=== PATIENT | female | born 1990 | race Caucasian/White ===

== ENCOUNTER → 2020-11-06 13:32 | Outpatient (BNVA) | payer MEDICAID, SELFPAY | PROVIDERS: Family Provider Physician Assistant; Visit Provider Psychiatry & Neurology Psychiatry | DX: F33.2 Major depressive disorder, recurrent severe without psychotic features (principal); F41.1 Generalized anxiety disorder; F43.12 Post-traumatic stress disorder, chronic; F12.20 Cannabis dependence, uncomplicated; F15.20 Other stimulant dependence, uncomplicated; F11.21 Opioid dependence, in remission; F17.210 Nicotine dependence, cigarettes, uncomplicated; S06.9X9A Unspecified intracranial injury with loss of consciousness of unspecified duration, initial encounter | CPT/HCPCS: 99204 ==

== ENCOUNTER → 2020-12-09 13:53 | Outpatient (BNVA) | payer MEDICAID, SELFPAY | PROVIDERS: Family Provider Physician Assistant; Visit Provider Psychiatry & Neurology Psychiatry | DX: F43.12 Post-traumatic stress disorder, chronic (principal); F17.210 Nicotine dependence, cigarettes, uncomplicated; F11.21 Opioid dependence, in remission; F15.20 Other stimulant dependence, uncomplicated; F12.20 Cannabis dependence, uncomplicated; F41.1 Generalized anxiety disorder; F33.2 Major depressive disorder, recurrent severe without psychotic features | CPT/HCPCS: 99214 ==

== ENCOUNTER 2020-12-12 09:25 | Emergency (ER) | payer MEDICAID, SELFPAY ==
[2020-12-12 09:36] VITALS: BP 144/86; PULSE 81; RESP 15; TEMP 36.5; O2SAT 96; BMI 23.5
--- NOTE | 2020-12-12 10:13 | W.ED.MEDCLER ---
HPI - Medical Clearance General Chief complaint: Medical Clearance Stated complaint: without abilify, awaiting script refill Time Seen by Provider: 12/12/20 09:41 Source: patient Mode of arrival: ambulatory Limitations: no limitations History of Present Illness HPI Narrative: 30-year-old female presents to the ER today for a medication refill. Patient has been off of her Abilify x3 days. She has contacted the pharmacy who was trying to get a hold of her doctor Dr. Richter at [facility]. Patient reports when she runs out of her medication she starts having hallucinations and extreme anxiety. She reports she is to this point at this time and needs a refill before the weekend. Patient is unsure of her dose and reports she was taking 1-1/2 tabs however thinks the doctor was upping that to 2 tabs. Patient denies SI\HI at this time. Onset (ago): day(s) (3) Related Information Previous Rx's Medication Instructions Recorded trazodone 100 mg tablet 200 mg PO .HS PRN #60 tab 11/06/20 bupropion HCl 300 mg 24 hr tablet, 300 mg PO QAM #30 tab 12/09/20 extended release citalopram 40 mg tablet 40 mg PO DAILY #30 tab 12/09/20 hydroxyzine pamoate 50 mg capsule 50 mg PO TID PRN #90 cap 12/09/20 aripiprazole 10 mg tablet 10 mg PO DAILY #30 tab 12/11/20 Allergies Allergy/AdvReac Type Severity Reaction Status Date / Time No Known Allergies Allergy Verified 12/09/20 14:00 Course Consultations Consultation #1: I contacted Dr. Richter's office to get clarification on medication dose and also if a refill is at the pharmacy. Was told by that office that patient prescription is at [facility] pharmacy and ready for pickup. Time: 10:19 Vital Signs Temperature 97.7 F 12/12/20 09:36 Pulse Rate 81 12/12/20 09:36 Respiratory Rate 15 12/12/20 09:36 Blood Pressure 144/86 12/12/20 09:36 Pulse Oximetry 96 12/12/20 09:36 MDM - Medical Clearance MDM Narrative Medical decision making narrative: Patient presents to the ER needing a refill on her Abilify. I have contacted her behavioral health doctor Dr. Richter to find out the status of her prescription and the correct dosage. We will get her a dose in the ER today. Patient's physician said the dose is waiting for her at the pharmacy and will be 10 mg daily. Critical Care Time Critical Care Time Critical Care Time: No Discharge Plan Discharge Patient Disposition: Home Clinical Impression: Major depression, chronic Condition: Stable Prescriptions: No Action trazodone 100 mg tablet 200 mg PO .HS PRN (Reason: insomnia) Qty: 60 RF: 2 bupropion HCl [Wellbutrin XL] 300 mg tablet extended release 24 hr 300 mg PO QAM Qty: 30 RF: 2 citalopram [Celexa] 40 mg tablet 40 mg PO DAILY Qty: 30 RF: 2 hydroxyzine pamoate 50 mg capsule 50 mg PO TID PRN (Reason: anxiety) Qty: 90 RF: 2 aripiprazole [Abilify] 10 mg tablet 10 mg PO DAILY Qty: 30 RF: 2 Discharge Orders: Discharge ED (Routine); Ordered 12/12/20 Ordered By: Graciela Gilbert Discharge Diet: Usual diet Discharge Activity: Resume usual activity Patient Instructions: Opioid Safety Activity Restrictions/Additional Instructions: Continue home medications at this time. A prescription for a 10 mg Abilify tab is at the pharmacy per patient's doctor. Follow-up with behavioral health as scheduled. Return to the ER with any new or worsening symptoms.
[2020-12-12] MEDS: ARIPiprazole 10 mg Tablet PO (10:40)
[2020-12-12 10:45] VITALS: BP 101/61; PULSE 83; RESP 14; O2SAT 98
== END 2020-12-12 09:46 | disposition home or self-care (01) ==
PROVIDERS: Emergency Provider Physician Assistant
DX: F32.9 Major depressive disorder, single episode, unspecified (principal)
CPT/HCPCS: 99282

== ENCOUNTER → 2021-01-06 12:46 | Outpatient (BNVA) | payer OTHER, SELFPAY | PROVIDERS: Visit Provider Psychiatry & Neurology Psychiatry | DX: F43.12 Post-traumatic stress disorder, chronic (principal); F17.210 Nicotine dependence, cigarettes, uncomplicated; F11.21 Opioid dependence, in remission; F15.20 Other stimulant dependence, uncomplicated; F12.20 Cannabis dependence, uncomplicated; F41.1 Generalized anxiety disorder; F33.2 Major depressive disorder, recurrent severe without psychotic features | CPT/HCPCS: 99214 ==

== ENCOUNTER → 2021-02-10 09:47 | Outpatient (BNVA) | payer OTHER, SELFPAY | PROVIDERS: Visit Provider Psychiatry & Neurology Psychiatry | DX: F43.12 Post-traumatic stress disorder, chronic (principal); F41.1 Generalized anxiety disorder; F33.2 Major depressive disorder, recurrent severe without psychotic features; F17.210 Nicotine dependence, cigarettes, uncomplicated; F11.21 Opioid dependence, in remission; F15.20 Other stimulant dependence, uncomplicated; F12.20 Cannabis dependence, uncomplicated | CPT/HCPCS: 99214 ==

== ENCOUNTER 2024-04-13 16:49 | Emergency (ER) | payer MEDICAID, SELFPAY ==
[2024-04-13 16:58] VITALS: BP 110/77; PULSE 78; RESP 16; TEMP 36.5; O2SAT 98; BMI 22.6
--- NOTE | 2024-04-13 17:09 | ED_ITS ---
Documented by User: Omar Durant DO 04/14/24 10:43 HPI - Abdominal Pain 2 General: Chief Complaint: Abdominal Pain Stated Complaint: lower abdominal pain Time Seen by Provider: 04/13/24 17:06 History of Present Illness: 33-year-old female presents emergency ro om with lower abdominal pain. This been intermittent for the last several months she has been seen by her PCP for it that they had thought she had kidney stones but never actually did a CT or collected a stone. She has had a couple of ultrasounds those were negative. She has frequent vomiting and diarrhea at times she describes what sounds like acholic stools. She has not any hematochezia melena hematemesis or coffee- ground emesis. She has not noticed anything that exacerbates or relieves it. Associated Symptoms: Reports nausea; Denies chills, dysuria and fever(s) Related Data Previous Rx's Medication Instructions Recorded aripiprazole 10 mg tablet (Abilify) 10 mg PO DAILY #30 tabs 02/10/21 bupropion HCl 300 mg 24 hr tablet, 300 mg PO QAM #30 tabs 02/10/21 extended release (Wellbutrin XL) citalopram 40 mg tablet (Celexa) 40 mg PO DAILY #30 tabs 02/10/21 hydroxyzine pamoate 50 mg capsule 50 mg PO TID PRN anxiety #90 caps 02/10/21 trazodone 100 mg tablet 200 mg (2 x 100 mg) PO .HS PRN 02/10/21 insomnia #60 tabs dicyclomine 20 mg tablet 20 mg PO QID PRN abdominal pain 04/13/24 #20 tabs Allergies Allergy/AdvReac Type Severity Reaction Status Date / Time No Known Allergies Allergy Verified 02/10/21 09:56 Review of Systems 2 Const: Denies: fever(s) or chills Card: Denies: chest pain Resp: Denies: dyspnea GI: Reports: abdominal pain and nausea : Denies: dysuria, urinary frequency or urinary urgency Musc: Denies: neck pain or back pain Skin/Breast: Denies: rash PFSH ED 2 PFSH: Medical History (Updated 04/13/24 @ 19:12 by Tra Lewis MD) Traumatic brain injury Cannabis use disorder, severe, dependence Social History (Reviewed 01/10/25 @ 17:10 by BRAULIO Chang Smoking and tobacco/nicotine status: current every day tobacco/nicotine user cigarettes Packs smoked per day: 1 Years cigarettes smoked: 16 Quit status (tobacco/nicotine): has tried quititng Number of times tried to quit tobacco: 4 Second hand smoke exposure: Yes Physical Exam 2 Const: GENERAL APPEARANCE: cooperative ORIENTATION/CONSCIOUSNESS: Yes awake, Yes oriented to person, Yes oriented to place and Yes oriented to time HENMT: COMMON NORMALS: normocephalic, atraumatic and hearing grossly normal bilaterally HEAD & SCALP: normocephalic and atraumatic Resp: COMMON NORMALS: normal respiratory effort, No retractions, No use of accessory muscles and clear to auscultation bilaterally AUSCULTATION: clear to auscultation bilaterally Cardio: COMMON NORMALS: regular rate, regular rhythm and No murmurs present (Cardio) RATE: regular rate RHYTHM: regular rhythm GI: COMMON NORMALS: Soft to palpation and No hepatosplenomegaly present A USCULTATION: Yes normoactive bowel sounds PALPATION: Yes Soft to palpation, No Tenderness to palpation present (GI), No Guarding due to palpation present (GI) and Yes No hepatosplenomegaly present Extremity: COMMON NORMALS: normal to inspection, capillary refill normal, no clubbing, cyanosis or edema, no calf tenderness and no pedal edema Neuro: SENSORIUM/ORIENTATION: Yes oriented to person, Yes oriented to place and Yes oriented to time Skin: COMMON NORMALS: no rashes or lesions noted GENERAL SKIN EXAM: no rashes or lesions noted Course 2 Vital Signs: Vital signs: Vital Signs Temperature 97.7 F 04/13/24 16:58 Pulse Rate 64 04/13/24 20:01 Respiratory Rate 16 04/13/24 20:01 Blood Pressure 102/68 04/13/24 20:01 Pulse Oximetry 96 04/13/24 20:01 Oxygen Delivery Me thod Room Air 04/13/24 19:58 MDM - Abdominal Pain Medical Decision Making Care signed out to Dr. Lewis at change of shift. See final notes for diagnosis and disposition. Lab Data 04/13/24 17:27 04/13/24 17:27 Labs/Radiology: Radiology Impressions Abdomen/Pelvis CT 04/13/24 17:21 IMPRESSION: 1. No bowel obstruction or inflammatory process associated with the bowel. 2. No free air or significant free fluid in the abdomen or pelvis. 3. No evidence of appendicitis. 4. No hydronephrosis or renal calculus. No stone in the bladder. Laboratory Results WBC 10.24 10^3/uL (3.29-11.43) 04/13/24 17: RBC 5.10 10^6/uL (3.85-5.65) 04/13/24 17: Hgb 14.90 g/dL (11.27-16.99) 04/13/24 17: Hct 46.6 % (36-47) 04/13/24 17: MCV 91.4 fl (85-98) 04/13/24 17: MCH 29.2 pg (27-33) 04/13/24 17: MCHC 32.0 g/dL (30-55) 04/13/24 17: RDW 12.8 % (12.1-15.1) 04/13/24: Plt Count 205 10^3/cmm (157-399) 04/13/24: MPV 10.3 fL (7.4-10.4) 04/13/24 17: Neut % (Auto) 69.6 % 04/13/24: Lymph % (Auto) 21.0 % 04/13/24: Major % (Auto) 6.1 % 04/13/24 17: Eos % (Auto) 2.6 % 04/13/24: Baso % (Auto) 0.5 % 04/13/24: Neut # (Auto) 7.13 10^3/uL (1.8-7.7) 04/13/24 17: Lymph # (Auto) 2.2 10^3/uL (0.8-4.8) 04/13/24: Major # (Auto) 0.6 10^3/uL (0.2-0.9) 04/13/24 17: Eos # (Auto) 0.3 10^3/uL (0.0-0.8) 04/13/24 17: Baso # (Auto) 0.1 10^3/uL (0.0-0.1) 01/10/25 17:27 Nucleated RBC % (auto) 0 % 04/13/24 17:27 Nucleated RBCs # 0.0 /100WBC 04/13/24 17:27 Sodium 138 mmol/L (136-145) 04/13/24 17:27 Potassium 4.6 mmol/L (3.5-5.1) 04/13/24 17:27 Chloride 101 mmol/L (98-107) 04/13/24 17:27 Carbon Dioxide 27 mmol/L (22-29) 04/13/24 17:27 Anion Gap 14.6 (5-19) 04/13/24 17:27 BUN 23 mg/dL (6-20) H 04/13/24 17:27 Creatinine 0.7 mg/dL (0.5-0.9) 04/13/24 17: GFR Calculation 95.8 mL/min (90-130) 04/13/24 17:27 Glucose 89 mg/dL (65-115) 04/13/24 17:27 Calculated Osmolality 289 mOsm/kg (285-295) 04/13/24 17:27 Calcium 10.0 mg/dL (8.5-10.5) 04/13/24 17:27 Total Bilirubin 0.2 mg/dL (0.15-1.2) 04/13/24 17:27 AST 20 U/L (0-32) 04/13/24 17:27 ALT 30 U/L (0-33) 04/13/24 17:27 Alkaline Phosphatase 73 U/L (35-105) 04/13/24 17:27 Total Protein 7.6 g/dL (6.6-8.7) 04/13/24 17:27 Albumin 4.5 g/dL (3.5-5.2) 04/13/24 17:27 Globulin 3.1 g/dL (1.3-4.6) 04/13/24 17:27 Lipase 17 U/L (13-60) 04/13/24 17:27 HCG, Qual Negative (Negative) 04/13/24 17:27 Urine Color Yellow (Yellow) 04/13/24 17:09 Urine Appearance Clear (CLEAR) 04/13/24 17: Urine pH 6.0 (5-7) 04/13/24 17: Ur Specific [place] 1.021 (1.005-1.030) 04/13/24 17:09 Urine Protein Negative (Negative) 04/13/24 17:09 Urine Glucose (UA) Negative (Normal) 04/13/24 17:09 Urine Ketones Negative (Negative) 04/13/24 17:09 Urine Blood Negative (Negative) 04/13/24 17:09 Urine Nitrate Negative (Negative) 04/13/24 17:09 Urine Bilirubin Negative (Negative) 04/13/24 17:09 Urine Urobilinogen 0.2 mg/dL (Negative) 04/13/24 17:09 Ur Leukocyte Esterase Negative (Negative) 04/13/24 17:09 Urine RBC 0-2 /hpf (0-2) 04/13/24 17:09 Urine WBC 0-5 /hpf (0-5) 04/13/24 17:09 Ur Squamous Epith Cells 0-5 /hpf (0-5) 04/13/24 17:09 Amorphous Sediment Not Reportable 04/13/24 17:09 Urine Bacteria None seen /hpf (NONE) 04/13/24 17:09 Hyaline Casts 0-4 /lpf H 04/13/24 17:09 Discharge Plan Discharge Patient Disposition: Home Clinical Impression: Abdominal pain Qualifiers: Abdominal location: unspecified location Qualified Code(s): R10.9 - Unspecified abdominal pain Condition: Stable Prescriptions: New dicyclomine 20 mg tablet 20 mg PO QID PRN (Reason: abdominal pain) Qty: 20 0RF No Action aripiprazole [Abilify] 10 mg tablet 10 mg PO DAILY Qty: 30 2RF bupropion HCl [Wellbutrin XL] 300 mg tablet extended release 24 hr 300 mg PO QAM Qty: 30 2RF citalopram [Celexa] 40 mg tablet 40 mg PO DAILY Qty: 30 2RF hydroxyzine pamoate 50 mg capsule 50 mg PO TID PRN (Reason: anxiety) Qty: 90 2RF trazodone 100 mg tablet 200 mg PO .HS PRN (Reason: insomnia) Qty: 60 2RF Discharge Orders: Discharge ED (Routine); Ordered 04/13/24 Ordered By: Tra Lewis Patient Instructions: Abdominal Pain (ED) Activity Restrictions/Additional Instructions: Follow-up with your primary care provider. You may need referral to gastroenterology for further workup. Conditions such as irritable bowel syndrome or inflammatory bowel disease would need further workup. Coding Level of Care Code ED Job Superintendent for Chg Fwd Documented by User: Tra Lewis MD 04/13/24 19:18 HPI - Abdominal Pain 2 General: Chief Complaint: Abdominal Pain Stated Complaint: lower abdominal pain Time Seen by Provider: 04/13/24 17:06 Related Data Previous Rx's Medication Instructions Recorded aripiprazole 10 mg tablet (Abilify) 10 mg PO DAILY #30 tabs 02/10/21 bupropion HCl 300 mg 24 hr tablet, 300 mg PO QAM #30 tabs 02/10/21 extended release (Wellbutrin XL) citalopram 40 mg tablet (Celexa) 40 mg PO DAILY #30 tabs 02/10/21 hydroxyzine pamoate 50 mg capsule 50 mg PO TID PRN anxiety #90 caps 02/10/21 trazodone 100 mg tablet 200 mg (2 x 100 mg) PO .HS PRN 02/10/21 insomnia #60 tabs dicyclomine 20 mg tablet 20 mg PO QID PRN abdominal pain 04/13/24 #20 tabs Allergies Allergy/AdvReac Type Severity Reaction Status Date / Time No Known Allergies Allergy Verified 02/10/21 09:56 PFS ED 2 PFSH: Medical History (Updated 04/13/24 @ 19:12 by Tra Lewis MD) Traumatic brain injury Cannabis use disorder, severe, dependence Social History Smoking and tobacco/nicotine status: current every day tobacco/nicotine user cigarettes Packs smoked per day: 1 Years cigarettes smoked: 16 Quit status (tobacco/nicotine): has tried quititng Number of times tried to quit tobacco: 4 Second hand smoke exposure: Yes Course 2 Vital Signs: Vital signs: Vital Signs Temperature 97.7 F 04/13/24 16:58 Pulse Rate 64 04/13/24 20:01 Respiratory Rate 16 04/13/24 20:01 Blood Pressure 102/68 04/13/24 20:01 Pulse Oximetry 96 04/13/24 20:01 Oxygen Delivery Me thod Room Air 04/13/24 19:58 MDM - Abdominal Pain Medical Decision Making Care signed out to Dr. Lewis at change of shift. See final notes for diagnosis and disposition. I assumed care of this patient at shift change. The CT of the abdomen pelvis was pending. I did interview and examine the patient. I reviewed all the laboratory studies which were normal. The CT has been read by the radiologist as normal. I discussed results with her. Discussed with her that she could possibly [id number] bowel syndrome or inflammatory bowel disease and she will need further workup. Recommended she follow-up with her primary care physician with possible referral to gastroenterology. We will try her on a course of Bentyl for the abdominal pain. She was discharged with her in stable condition. Lab Data 04/13/24 17:27 04/13/24 17:27 Labs/Radiology: Radiology Impressions Abdomen/Pelvis CT 04/13/24 17:21 IMPRESSION: 1. No bowel obstruction or inflammatory process associated with the bowel. 2. No free air or significant free fluid in the abdomen or pelvis. 3. No evidence of appendicitis. 4. No hydronephrosis or renal calculus. No stone in the bladder. Laboratory Results WBC 10.24 10^3/uL (3.29-11.43) 04/13/24 17: RBC 5.10 10^6/uL (3.85-5.65) 04/13/24 17: Hgb 14.90 g/dL (11.27-16.99) 04/13/24 17:27 Hct 46.6 % (36-47) 04/13/24 17: MCV 91.4 fl (85-98) 04/13/24 17: MCH 29.2 pg (27-33) 04/13/24 17: MCHC 32.0 g/dL (30-55) 04/13/24 17: RDW 12.8 % (12.1-15.1) 04/13/24 17: Plt Count 205 10^3/cmm (157-399) 04/13/24 17: MPV 10.3 fL (7.4-10.4) 04/13/24 17:27 Neut % (Auto) 69.6 % 04/13/24 17:27 Lymph % (Auto) 21.0 % 04/13/24 17:27 Major % (Auto) 6.1 % 04/13/24 17:27 Eos % (Auto) 2.6 % 04/13/24 17:27 Baso % (Auto) 0.5 % 04/13/24 17:27 Neut # (Auto) 7.13 10^3/uL (1.8-7.7) 04/13/24 17:27 Lymph # (Auto) 2.2 10^3/uL (0.8-4.8) 04/13/24 17:27 Major # (Auto) 0.6 10^3/uL (0.2-0.9) 04/13/24 17:27 Eos # (Auto) 0.3 10^3/uL (0.0-0.8) 04/13/24 17: Baso # (Auto) 0.1 10^3/uL (0.0-0.1) 04/13/24 17:27 Nucleated RBC % (auto) 0 % 04/13/24 17: Nucleated RBCs # 0.0 /100WBC 04/13/24 17:27 Sodium 138 mmol/L (136-145) 04/13/24 17:27 Potassium 4.6 mmol/L (3.5-5.1) 04/13/24 17:27 Chloride 101 mmol/L (98-107) 04/13/24 17:27 Carbon Dioxide 27 mmol/L (22-29) 04/13/24 17:27 Anion Gap 14.6 (5-19) 04/13/24 17:27 BUN 23 mg/dL (6-20) H 04/13/24 17:27 Creatinine 0.7 mg/dL (0.5-0.9) 04/13/24 17:27 GFR Calculation 95.8 mL/min (90-130) 04/13/24 17:27 Glucose 89 mg/dL (65-115) 04/13/24 17:27 Calculated Osmolality 289 mOsm/kg (285-295) 04/13/24 17: Calcium 10.0 mg/dL (8.5-10.5) 04/13/24 17:27 Total Bilirubin 0.2 mg/dL (0.15-1.2) 04/13/24 17: AST 20 U/L (0-32) 04/13/24 17: ALT 30 U/L (0-33) 04/13/24 17: Alkaline Phosphatase 73 U/L (35-105) 04/13/24 17: Total Protein 7.6 g/dL (6.6-8.7) 04/13/24 17: Albumin 4.5 g/dL (3.5-5.2) 04/13/24 17: Globulin 3.1 g/dL (1.3-4.6) 04/13/24 17: Lipase 17 U/L (13-60) 04/13/24 17: HCG, Qual Negative (Negative) 04/13/24 17: Urine Color Yellow (Yellow) 04/13/24 17:09 Urine Appearance Clear (CLEAR) 04/13/24 17: Urine pH 6.0 (5-7) 04/13/24 17:09 Ur Specific [place] 1.021 (1.005-1.030) 04/13/24 17:09 Urine Protein Negative (Negative) 04/13/24 17:09 Urine Glucose (UA) Negative (Normal) 04/13/24 17:09 Urine Ketones Negative (Negative) 04/13/24 17:09 Urine Blood Negative (Negative) 04/13/24 17:09 Urine Nitrate Negative (Negative) 04/13/24 17:09 Urine Bilirubin Negative (Negative) 04/13/24 17:09 Urine Urobilinogen 0.2 mg/dL (Negative) 04/13/24 17:09 Ur Leukocyte Esterase Negative (Negative) 04/13/24 17:09 Urine RBC 0-2 /hpf (0-2) 04/13/24 17:09 Urine WBC 0-5 /hpf (0-5) 04/13/24 17:09 Ur Squamous Epith Cells 0-5 /hpf (0-5) 04/13/24 17:09 Amorphous Sediment Not Reportable 04/13/24 17:09 Urine Bacteria None seen /hpf (NONE) 04/13/24 17:09 Hyaline Casts 0-4 /lpf H 04/13/24 17:09 All radiology interpretation(s) finalized by discharge Discharge Plan Discharge Patient Disposition: Home Clinical Impression: Abdominal pain Qualifiers: Abdominal location: unspecified location Qualified Code(s): R10.9 - Unspecified abdominal pain Condition: Stable Prescriptions: New dicyclomine 20 mg tablet 20 mg PO QID PRN (Reason: abdominal pain) Qty: 20 0RF No Action aripiprazole [Abilify] 10 mg tablet 10 mg PO DAILY Qty: 30 2RF bupropion HCl [Wellbutrin XL] 300 mg tablet extended release 24 hr 300 mg PO QAM Qty: 30 2RF citalopram [Celexa] 40 mg tablet 40 mg PO DAILY Qty: 30 2RF hydroxyzine pamoate 50 mg capsule 50 mg PO TID PRN (Reason: anxiety) Qty: 90 2RF trazodone 100 mg tablet 200 mg PO .HS PRN (Reason: insomnia) Qty: 60 2RF Discharge Orders: Discharge ED (Routine); Ordered 04/13/24 Ordered By: Tra Lewis Patient Instructions: Abdominal Pain (ED) Activity Restrictions/Additional Instructions: Follow-up with your primary care provider. You may need referral to gastroenterology for further workup. Conditions such as irritable bowel syndrome or inflammatory bowel disease would need further workup. Coding Level of Care Code ED Job Superintendent for Yoshi Nicole
--- NOTE | 2024-04-13 17:21 | CTR_ITS ---
PROCEDURE INFORMATION: Exam: CT Abdomen And Pelvis Without Contrast Exam date and time: 04/13/2024 5:49 PM Age: 33 years old Clinical indication: Abdominal pain; Other: Bilateral flank; Additional info: Flank pain TECHNIQUE: Imaging protocol: Computed tomography of the abdomen and pelvis without contrast. Radiation optimization: All CT scans at this facility use at least one of these dose optimization techniques: automated exposure control; mA and/or kV adjustment per patient size (includes targeted exams where dose is matched to clinical indication); or iterative reconstruction. COMPARISON: ES surgery / GI images 05/24/2017 6:05 AM RADIATION DOSE METRICS: Total DLP (mGy-cm): 408.15 FINDINGS: Liver: Normal. No mass. Gallbladder and biliary ducts: Normal. No calcified stones. No ductal dilation. Pancreas: Normal. No ductal dilation. Spleen: Normal. No splenomegaly. Adrenal glands: Normal. No mass. Kidneys and ureters: Normal. No hydronephrosis. Stomach and bowel: Unremarkable. No obstruction. No mucosal thickening. Appendix: No evidence of appendicitis. Intraperitoneal space: Unremarkable. No free air. No significant fluid collection. Vasculature: Unremarkable. No abdominal aortic aneurysm. Lymph nodes: Unremarkable. No enlarged lymph nodes. Urinary bladder: Unremarkable as visualized. Reproductive: Unremarkable as visualized. Bones/joints: Unremarkable. No acute fracture. Soft tissues: Unremarkable. CT/CT kidney stone [id number] IMPRESSION: 1. No bowel obstruction or inflammatory process associated with the bowel. 2. No free air or significant free fluid in the abdomen or pelvis. 3. No evidence of appendicitis. 4. No hydronephrosis or renal calculus. No stone in the bladder.
[2024-04-13 17:29] LABS: Bacteria Urine None Seen /hpf; Hyaline Casts Urine 0-4 /lpf; RBC Urine 0-2 /hpf (0-2); Squamous Epithelial Cell Urine 0-5 /hpf (0-5); WBC Urine 0-5 /hpf (0-5)
[2024-04-13 17:37] LABS: Add Urine Microscopic? YES; Bilirubin Urine Negative (Negative); Blood Urine Negative (Negative); Glucose Urine UA Negative (Normal); Ketones Urine Negative (Negative); Leukocyte Esterase Urine Negative (Negative); Nitrate Urine Negative (Negative); Protein Urine Negative (Negative); Specific Gravity, Urine 1.021 (1.005-1.030); Urine Color Yellow (Yellow); Urobilinogen Urine 0.2 mg/dL (Negative)
[2024-04-13 17:38] LABS: Urine Appearance Clear (CLEAR)
[2024-04-13 17:38] LABS: Basophils # 0.1 10^3/uL (0.0-0.1); Basophils % 0.5 %; Eosinophils # 0.3 10^3/uL (0.0-0.8); Eosinophils % 2.6 %; Hematocrit 46.6 % (36-47); Lymphocytes # 2.2 10^3/uL (0.8-4.8); Mean Corpuscular Hemoglobin 29.2 pg (27-33); Mean Corpuscular Volume 91.4 fl (85-98); Mean Platelet Volume 10.3 fL (7.4-10.4); Monocytes # 0.6 10^3/uL (0.2-0.9); Monocytes % 6.1 %; Neutrophils # 7.13 10^3/uL (1.8-7.7); Neutrophils % 69.6 %; Nucleated Red Blood Cells % 0 %; Platelet Count 205 10^3/cmm (157-399); Red Cell Distribution Width 12.8 % (12.1-15.1); White Blood Count 10.24 10^3/uL (3.29-11.43)
[2024-04-13 17:45] LABS: HCG, Serum Qual Negative (Negative)
[2024-04-13 17:51] LABS: Alanine Aminotransferase 30 U/L (0-33); Albumin Level 4.5 g/dL (3.5-5.2); Alkaline Phosphatase 73 U/L (35-105); Anion Gap 14.6 (5-19); Aspartate Amino Transferase 20 U/L (0-32); Blood Urea Nitrogen 23 mg/dL (6-20); Carbon Dioxide 27 mmol/L (22-29); Chloride 101 mmol/L (98-107); Globulin 3.1 g/dL (1.3-4.6); Glomerular Filtration Rate 95.8 mL/min (90-130); Glucose 89 mg/dL (65-115); Lipase 17 U/L (13-60); Osmolality Calculated 289 mOsm/kg (285-295); Potassium 4.6 mmol/L (3.5-5.1); Sodium 138 mmol/L (136-145); Total Bilirubin 0.2 mg/dL (0.15-1.2); Total Protein 7.6 g/dL (6.6-8.7)
[2024-04-13 18:12] VITALS: BP 110/77; PULSE 72; O2SAT 97
[2024-04-13 19:00] VITALS: BP 100/62; PULSE 69; O2SAT 96
[2024-04-13 19:15] VITALS: PULSE 65; O2SAT 97
[2024-04-13 19:58] VITALS: BP 105/72; PULSE 70; O2SAT 95
[2024-04-13 20:01] VITALS: BP 102/68; PULSE 64; RESP 16; O2SAT 96
== END 2024-04-13 20:12 | disposition home or self-care (01) ==
PROVIDERS: Emergency Medicine; Emergency Provider Emergency Medicine
DX: R10.9 Unspecified abdominal pain (principal); F17.210 Nicotine dependence, cigarettes, uncomplicated
CPT/HCPCS: 74176; 80053; 81001; 83690; 84703; 85025; 99284